=== PATIENT | male | born 1950 | race Caucasian/White ===

== ENCOUNTER 2018-10-06 10:13 | Day surgery (SDC) | payer MEDICARE, BC ==
[~2018-10-06] VITALS: Ht 170.2 cm; Wt 76.0 kg
[2018-10-06 11:16] LABS: HEMATOCRIT 43.1 % (42.0-52.0); HEMOGLOBIN 14.2 g/dl (13.5-18.0); MEAN CELL VOLUME 92 fl (80.0-100.0); MEAN CORPUSCULAR HEMOGLOBIN 30 pg (27.0-31.0); MEAN CORPUSCULAR HGB CONC 33 g/dl (33.0-37.0); MEAN PLATELET VOLUME 10.7 fl (7.4-10.4); PLATELET COUNT 164 K/mm3 (130-400); RED BLOOD COUNT 4.69 M/mm3 (4.20-5.60)
[2018-10-06 11:18] LABS: INR 1.4 (0.8-3.0); PROTHROMBIN TIME 15.4 SECONDS (9.7-12.8)
[2018-10-06] MEDS ORDERED: LEXAPRO 10MG10 MG PO (11:19)
[2018-10-06] MEDS ORDERED: ELIQUIS 5MG PO (11:20)
[2018-10-06] MEDS ORDERED: BETAPACE 120MG120 MG PO (11:20)
[2018-10-06] MEDS ORDERED: LANOXIN 0.25M0.25 MG PO (11:20)
[2018-10-06] MEDS ORDERED: LASIX 20MG TABL20 MG PO (11:21)
[2018-10-06] MEDS ORDERED: TYLENOL 500MG500 MG PO (11:21)
[2018-10-06 11:32] VITALS: BP 111/94; PULSE 95; TEMP 98.2
[2018-10-06 11:50] LABS: CALCIUM 9.2 mg/dL (8.4-10.2); CREATININE, serum 0.73 (0.66-1.25); POTASSIUM 4.4 mmol/L (3.4-5.0)
[2018-10-06 14:10] VITALS: BP 97/70; PULSE 47
--- NOTE | 2018-10-06 14:10 | NUR ---
report from Edilberto RN, pt in sinus rate 50 to 55, called for EKG. No c/o, in room, declined snack, water given, call light in reach
[2018-10-06 14:25] VITALS: BP 99/71; PULSE 51
[2018-10-06 14:40] VITALS: BP 103/73; PULSE 56
--- NOTE | 2018-10-06 14:40 | NUR ---
con't same, no c/o, sits up in bed, Dr arnett recieved
[2018-10-06 15:00] VITALS: BP 110/82; PULSE 56
--- NOTE | 2018-10-06 15:00 | NUR ---
reviewed discharge inst. with pt and , reviewed activity, appts and to stop taking digoxin with verbal understanding. pt walked, up to b/r, int d'cd intact. dressed
--- NOTE | 2018-10-06 15:15 | NUR ---
pt discharged via w/c to car with
== END 2018-10-06 15:15 | disposition home or self-care (01) ==
LOC: COL.CAR 10:13
PROVIDERS: Internal Medicine Cardiovascular Disease
DX: I48.0 Paroxysmal atrial fibrillation (principal); I11.0 Hypertensive heart disease with heart failure; I50.9 Heart failure, unspecified; I08.0 Rheumatic disorders of both mitral and aortic valves; Z79.899 Other long term (current) drug therapy
CPT/HCPCS: J2704

== ENCOUNTER 2021-04-25 08:15 | Day surgery (SDC) | payer MEDICARE, BC ==
[~2021-04-25] VITALS: Ht 170.2 cm; Wt 75.0 kg
[2021-04-25] VITALS (10 sets, daily range): BP systolic 95–120; BP diastolic 58–75; PULSE 43–54; TEMP 97.9
[~2021-04-25 08:15] MED LIST: BETAPACE AF80 MG/TA1 PO; ELIQUIS 5MG PO; LANOXIN 0.25M0.25 MG PO; LASIX 20MG TABL20 MG PO; LEXAPRO 10MG10 MG PO; TYLENOL 500MG500 MG PO
[2021-04-25 09:43] LABS: HEMATOCRIT 41.9 % (42.0-52.0); HEMOGLOBIN 13.6 g/dl (13.5-18.0); MEAN CELL VOLUME 91 fl (80.0-100.0); MEAN CORPUSCULAR HEMOGLOBIN 29 pg (27.0-31.0); MEAN CORPUSCULAR HGB CONC 33 g/dl (33.0-37.0); PLATELET COUNT 203 K/mm3 (130-400); RED BLOOD COUNT 4.63 M/mm3 (4.20-5.60); REDCELL DISTRIBUTION WIDTH-CV 13.2 % (11.5-14.5)
[2021-04-25 09:48] LABS: INR 1.1 (0.8-3.0); PROTHROMBIN TIME 11.9 SECONDS (9.7-12.8)
[2021-04-25 09:50] LABS: PARTIAL THROMBOPLASTIN TIME 32.3 SECONDS (26.0-37.0)
[2021-04-25 09:56] LABS: CALCIUM 8.9 mg/dL (8.4-10.2); CREATININE, serum 0.77 mg/dL (0.72-1.25); POTASSIUM 4.3 mmol/L (3.5-4.5)
--- NOTE | 2021-04-25 10:34 | NUR ---
SEE MERGE DOCUMENTATION FOR MEDICATION ADMINISTRATION TIMES AND INTRA/POST PROCEDURE SEDATION ASSESSMENTS.
--- NOTE | 2021-04-25 11:00 | NUR ---
Pt back to [facility] after heart cath. bedside report from Chilo CEVALLOS. Pt is awake and alert, pwd, resp reg and unlabored. TR band to rt wrist, cms intact distal. Pt and updated on poc. call light in reach, lunch ordered.
[2021-04-25] MEDS ORDERED: BETAPACE 120MG120 MG PO (12:28)
--- NOTE | 2021-04-25 14:45 | NUR ---
Pt has done well during his recovery. TR band has been deflated with no problem. Pt has been up and ambulatory in his room and to bathroom with steady gait. Right radial site dressed with bandaid, folded 2x2 and coban. cms remains intact distal. IV has been dc'd with cath intact, dressing applied. I have reviewed dc/rx and fu instructions with pt and his . no questions or concerns at time of departure. I ambulated with pt and to their vehicle. There was a fire alarm going off at time of their departure, and we decided not to use a wheelchair as we did not want to use elevator. Pt was steady on feet, denied any problems.
== END 2021-04-25 15:46 | disposition home or self-care (01) ==
LOC: COL.CAR 08:15
PROVIDERS: Internal Medicine Cardiovascular Disease
DX: I48.0 Paroxysmal atrial fibrillation (principal); Z79.01 Long term (current) use of anticoagulants; Z79.899 Other long term (current) drug therapy; I47.2 Ventricular tachycardia
CPT/HCPCS: J1644; J2250; J3010; Q9967